=== PATIENT | female | born 2005 | race Caucasian/White ===

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

== ENCOUNTER 2023-01-21 03:52 | Inpatient (IN) | payer OTHER ==
[2023-01-21] MEDS ORDERED: OXYTOCIN 10 UNIT/ML 1 ML VIAL IM PRN (04:19)
[2023-01-21] MEDS ORDERED: TRANEXAMIC 1,000 MG/100ML-NACL 1,000 MG in EMPTY BAG 1 BAG IV PRN (04:19)
[2023-01-21] MEDS ORDERED: METHYLERGONOVINE 0.2 MG/ML 1 ML AMP IM PRN (04:19)
[2023-01-21] MEDS ORDERED: CARBOPROST TROMETHAMINE 250 MCG/ML 1 ML AMP IM PRN (04:19)
[2023-01-21] MEDS ORDERED: TERBUTALINE 1 MG/ML VIAL SQ PRN (04:19)
[2023-01-21] MEDS ORDERED: LIDOCAINE 0.5% (PF) 5 MG/ML (50 ML SDV) SQ PRN (04:19)
[2023-01-21] MEDS ORDERED: miSOPROStoL 200 MCG TAB PO PRN (04:19)
[2023-01-21] MEDS ORDERED: OXYTOCIN 30 UNITS/500 ML NS 30 UNIT in SALINE 1 500ML.BAG IV SCH ×2 (04:30→13:15)
[2023-01-21] MEDS: LACTATED RINGERS 1,000 ML IV SCH ×3 (05:04→10:36)
[2023-01-21 05:44] LABS: Basophils % (A) 0 %; Eosinophils # (A) 0.1 k/uL (0-0.7); Eosinophils % (A) 1 %; HCT 38.9 % (34.0-46.0); Lymphocytes % (A) 17 %; MCH 29.4 pg (25.0-35.0); MCHC 33.4 g/dL (31.0-37.0); Mean Platelet Volume 8.3; Monocytes # (A) 0.4 k/uL (0-1.0); Monocytes % (A) 3 %; Neutrophils # (A) 8.9 k/uL (1.3-7.7); Neutrophils % (A) 78 %; Platelet Count 285 k/uL (150-450); RBC 4.42 m/uL (3.80-5.40); RDW 13.7 % (11.5-15.5); WBC 11.4 k/uL (4.0-11.0)
--- NOTE | 2023-01-21 06:22 | P.HPOB ---
History of Present Illness H&P Date: 01/21/23 Chief Complaint: Spontaneous rupture membranes This is a 17-year-old female 1 para 0 with an estimated date of confinement of 01/29/2023, estimated gestational age of 38-6/7 weeks, who presents to labor and delivery with complaints of spontaneous rupture membranes with clear fluid noted at approximately 3 AM. Her has been complicated by a marginal cord insertion. She has been doing regular surveillance due to this. labs: Group B streptococcus-negative Hemoglobin-11.6 One hour Glucola-117 [id number] GC/chlamydia/Trichomonas-negative Blood type-A+ Rubella-immune Toxoplasma-negative RPR-nonreactive HIV-nonreactive Hepatitis C antibody-negative nonreactive Random glucose-103 Antibody screen-negative Hepatitis B surface antigen-negative Obstetrical history: . Gynecologic history: No history of sexual transmitted diseases. Social history: She is single. She works at a factory. Review of Systems Constitutional: Denies chills, Denies fever Eyes: denies blurred vision, denies pain Ears, nose, mouth and throat: Denies headache, Denies sore throat Cardiovascular: Denies chest pain, Denies shortness of breath Respiratory: Denies cough Gastrointestinal: Reports abdominal pain (Contractions) Genitourinary: Reports pelvic pain, Reports Musculoskeletal: Reports low back pain Integumentary: Denies pruritus, Denies rash Neurological: Denies numbness, Denies weakness Psychiatric: Reports difficulty concentrating, Denies anxiety, Denies depression Past Medical History Past Medical History: No Reported History History of Any Multi-Drug Resistant Organisms: None Reported Past Surgical History: No Surgical Hx Reported Additional Past Surgical History / Comment(s): wisdom teeth Past Anesthesia/Blood Transfusion Reactions: No Reported Reaction Past Psychological History: ADD/ADHD Smoking Status: Never smoker Past Alcohol Use History: None Reported Past Drug Use History: Marijuana (Quit with ) - Past Family History Sister(s) Family Medical History: Cancer Medications and Allergies Home Medications Medication Instructions Recorded Confirmed Type Vit No.179/Iron/Folic 1 tab PO DAILY 11/01/22 01/21/23 History [ Tablet] Allergies Allergy/AdvReac Type Severity Reaction Status Date / Time No Known Allergies Allergy Verified 11/01/22 19:08 Exam Osteopathic Statement: *. No significant issues noted on an osteopathic structural exam other than those noted in the History and Physical/Consult. Vital Signs Temp Pulse Resp BP Pulse Ox 01/21/23 04:18 97.7 F 90 16 133/76 99 01/21/23 04:12 97.7 F 90 16 133/76 99 Intake and Output 01/20/23 01/20/23 01/21/23 14:59 22:59 06:59 Other: Weight 94.347 kg HEENT: Within normal limits Heart: Regular rate and rhythm Lungs: Clear to auscultation bilaterally Abdomen: Cervix: 2-1/2-3 cm/70%/-2 station, grossly ruptured clear fluid with positive amnisure heart tones: 130s, reactive, with moderate variability and accelerations and occasional mild variable deceleration Contractions: Every 2-5 minutes Extremities: Negative Homans Results Result Diagrams: 01/21/23 04:55 Abnormal Lab Results - Last 24 Hours (Table) 01/21/23 Range/Units 04:55 WBC 11.4 H (4.0-11.0) k/uL Neutrophils # 8.9 H (1.3-7.7) k/uL Assessment and Plan (1) 38 weeks gestation of Current Visit: Yes Status: Acute Code(s): Z3A.38 - 38 WEEKS GESTATION OF SNOMED Code(s): 88006021 Plan: Admission for spontaneous rupture membranes. Oxytocin augmentation of labor. Epidural anesthesia if desired. Expectant management.
[2023-01-21] MEDS ORDERED: fentaNYL (PF) 50 MCG/ML 5 ML AMP ONE (10:10)
[2023-01-21] MEDS ORDERED: ROPIVACAINE 5 MG/ML 30 ML VIAL ONE (10:10)
[2023-01-21] MEDS ORDERED: SODIUM CHLORIDE 0.9% 250 ML BAG ONE (10:10)
[2023-01-21] MEDS ORDERED: SIMETHICONE 80 MG CHEWABLE PO PRN (13:14)
[2023-01-21] MEDS ORDERED: HYDROCORTISONE 2.5% RECTAL CREAM 30 GM TUBE RECTAL PRN (13:14)
[2023-01-21] MEDS ORDERED: ACETAMINOPHEN TAB 325 MG TAB PO PRN (13:14)
[2023-01-21] MEDS ORDERED: diphenhydrAMINE 50 MG/ML 1 ML VIAL IVP PRN ×2 (13:14)
[2023-01-21] MEDS ORDERED: diphenhydrAMINE 50 MG CAP PO PRN (13:14)
[2023-01-21] MEDS ORDERED: LANOLIN CREAM 5 GM TUBE TOPICAL PRN (13:14)
[2023-01-21] MEDS ORDERED: IBUPROFEN 600 MG TAB PO PRN (13:14)
[2023-01-21] MEDS ORDERED: ZOLPIDEM 5 MG TAB PO PRN (13:14)
[2023-01-21] MEDS ORDERED: BENZOCAINE/MENTHOL SPRAY 1 GM/SPRAY AEROSOL TOPICAL PRN (13:14)
[2023-01-21] MEDS ORDERED: diphenhydrAMINE 25 MG CAP PO PRN (13:14)
--- NOTE | 2023-01-21 13:15 | P.PROBDLV ---
Vaginal Delivery Note - . Vaginal Delivery Note: The patient progressed to complete dilation after spontaneous rupture membranes and oxytocin augmentation of labor. She did try nitrous oxide for a while and then did get an epidural. Shortly after the epidural she was found be complete, she labored down, and then started pushing. Infant's head came to a crown. With one further push, the 's head delivered across the perineum in a right occiput anterior lie followed by the anterior shoulder. Nose and mouth were bulb suctioned. With one further push, the remainder the infant easily delivered and was placed on mother's abdomen. Cord was clamped and cut and was taken to warmer for evaluation. A viable male was noted with scores of 9 at 1 minute and 9 at 5 minutes and infant weight of 7 lbs. 15 oz. Sent to delivered shortly thereafter, intact, with a three-vessel cord. Marginal cord insertion was noted. Uterus contracted fairly well after oxytocin was given and uterine massage was carried out. Inspection of the perineum revealed a few abrasions but no active bleeding noted. Estimated blood loss is approximately 100 mL's. Both mother and are in stable condition.
--- NOTE | 2023-01-21 13:17 | P.MSEPDOC ---
Presenting Problems - Arrival Data Date of Arrival on Unit: 01/21/23 Time of Arrival on Unit: 04:12 Mode of Transport: Wheelchair - Complaint OB-Reason for Admission/Chief Complaint: Rule Out SROM Comment: SROM 0300 clear fluid Medical History - Information : 1 Para: 0 Term: 0 : 0 Abortions: Spontaneous or Elective: 0 Number of Living Children: 0 - Gestational Age Gestational Age by MATTHEW (wks/days): 38 Weeks and 6 Days Review of Systems - Review of Systems Constitutional: No problems Breast: No problems ENT: No problems Cardiovascular: No problems Respiratory: No problems Gastrointestinal: No problems Genitourinary: No problems Musculoskeletal: No problems Neurological: No problems Skin: No problems Vital Signs - Temperature Temperature: 97.7 F Temperature Source: Temporal Artery Scan - Pulse Pulse Oximetery Pulse Rate: 90 Pulse Assessment Method: Automatic Cuff - Respirations Respiratory Rate: 16 Oxygen Delivery Method: Room Air O2 Sat by Pulse Oximetry: 99 - Blood Pressure Right Arm Blood Pressure: 133/76 Blood Pressure Mean: 95 Blood Pressure Source: Automatic Cuff Medical Screen Scoring - Cervical Exam Dilation (cm): 3 Effacement (%): 70 Station: -2 Membranes: Ruptured - Uterine Contractions Frequency From (mins): 2 Frequency To (mins): 4 Duration From (seconds): 30 Duration To (seconds): 80 Intensity: Mild Resting: Soft to palpation - Assessment - Baby A Baseline FHR: 130 Heart Rate - NICHD Category: Category I (Normal) NST: Reactive Physician Notification - Physician Notified Physician Notified Date: 01/21/23 Physician Notified Time: 04:12 Physician: Yadira Flowers New Order Received: Yes - Notification Comment Comment: Admit for labor Maternal Triage Index - Maternal Triage Index Presenting for scheduled procedure w/no complaint: No - Stat/Priority 1 Stat Priority 1: No - Urgent/Priority 2 Urgent Priority 2: Yes Provider Notified: Yadira Flowers Provider Notified Time: 04:12 Criteria Met for Priority 2: SROM amnsiure positive 0300 clear fluid Disposition - Disposition OB Disposition: Admit I agree with the RN Medical Screening Exam: Yes Case reviewed; plan agreed upon as documented in EMR&OBIX.: Yes Diagnosis: ENCOUNTER FOR FULL-TERM UNCOMPLICATED DELIVERY
[2023-01-21] MEDS: SENNOSIDES-DOCUSATE SODIUM 1 EACH TAB PO SCH (20:48)
[2023-01-21 22:19] VITALS: RESP 16
[2023-01-22 06:31] LABS: Basophils % (A) 0 %; Eosinophils # (A) 0.1 k/uL (0-0.7); Eosinophils % (A) 1 %; HCT 34.7 % (34.0-46.0); HGB 11.7 gm/dL (11.4-16.0); Lymphocytes # (A) 1.8 k/uL (1.0-4.8); Lymphocytes % (A) 15 %; MCHC 33.8 g/dL (31.0-37.0); MCV 88.7 fL (80.0-100.0); Mean Platelet Volume 8.5; Monocytes # (A) 0.4 k/uL (0-1.0); Monocytes % (A) 4 %; Neutrophils # (A) 9.7 k/uL (1.3-7.7); Neutrophils % (A) 80 %; Platelet Count 214 k/uL (150-450); RBC 3.91 m/uL (3.80-5.40); RDW 13.6 % (11.5-15.5); WBC 12.2 k/uL (4.0-11.0)
[2023-01-22] MEDS: SENNOSIDES-DOCUSATE SODIUM 1 EACH TAB PO SCH (07:52)
--- NOTE | 2023-01-22 08:52 | P.DS ---
Providers Date of admission: 01/21/23 04:12 Expected date of discharge: 01/22/23 Attending physician: Yadira Flowers Primary care physician: Stated None - Discharge Diagnosis(es) (1) 38 weeks gestation of Current Visit: Yes Status: Acute Hospital Course: This is a 17-year-old female 1 para 0 at 38-6/7 weeks who presented with spontaneous rupture of membranes. She delivered vaginally a viable male infant with scores of 9 at 1 minute and 9 at 5 minutes and infant weight of 7 lbs. 15 oz. Her course is been uncomplicated. She is breast- feeding. Lochia is decreasing. Her pain is fairly well controlled. Vital signs are stable. Abdomen is soft with fundus firm and nontender. Extremities show negative Homans. Impression is status post vaginal delivery day #1. Plan is to discharge home today. Routine instructions are given. She is advised to follow up in the office in 6 weeks for a check. She is advised to call the office if she has any further questions or concerns prior to her appointment time. She will be given a perception for ibuprofen and a breast pump. Procedures: Oxytocin augmentation of labor Spontaneous vaginal delivery of a viable male infant on 01/21/2023 Patient Condition at Discharge: Stable Plan - Discharge Summary New Discharge Prescriptions: New Acetaminophen Tab [Tylenol] 650 mg PO Q4HR PRN tab PRN Reason: Mild Pain Or Fever >= 100.5 Ibuprofen [Motrin] 600 mg PO Q6HR PRN #60 tab PRN Reason: Mild Pain (Scale 1 To 3) Continue Vit No.179/Iron/Folic [ Tablet] 1 tab PO DAILY Discharge Medication List Vit No.179/Iron/Folic [ Tablet] 1 tab PO DAILY 11/01/22 [History] Acetaminophen Tab [Tylenol] 650 mg PO Q4HR PRN tab 01/22/23 [Rx] Ibuprofen [Motrin] 600 mg PO Q6HR PRN #60 tab 01/22/23 [Rx] Follow up Appointment(s)/Referral(s): Yadira Flowers DO [Doctor of Osteopathic Medicine] - 6 Weeks Activity/Diet/Wound Care/Special Instructions: Instructions 1. Do not begin any exercise program for 3 weeks. 2. Do not resume sexual relations for 3 weeks or longer if uncomfortable. 3. You may take tub baths or showers at any time. 4. You may use tampons if desired after 3 weeks. 5. Keep the area of episiotomy (stitches) clean and dry. 6. If you are not nursing, wear a good fitting, supportive bra during the day and limit fluid intake for at least 1 week to prevent breast engorgement. 7. Call the office, [phone], within the next week to make appointment for your 6 week checkup if it has not already been made. 8. Report any of the following occurrences to the doctor promptly: a. Heavy, excessive bleeding b. Chills, fever c. Burning or frequency of urination d. Pain or redness and breasts if nursing e. Increasing pain or swelling in episiotomy (stitches). In addition to the above instructions, the following additional should be followed: 1. No heavy lifting or straining (exercising) until after 6 week checkup. 2. Keep abdominal incision clean and dry: You may wear a dressing if more comfortable. 3. Make office appointment for 10 days after going home or as instructed by her doctor. Discharge Disposition: HOME SELF-CARE
[2023-01-22] MEDS ORDERED: PRENATAL VIT-IRON-FOLIC ACID 1 EACH TABLET PO SCH (09:00)
[2023-01-22 11:43] VITALS: BP 107/72; PULSE 91; TEMP 98.3
== END 2023-01-22 14:42 | disposition home or self-care (01) | DRG 560 ==
LOC: FBPOP 03:52 → 4FBP 04:12
PROVIDERS: ADMIT Obstetrics & Gynecology; ATTEND Obstetrics & Gynecology
PROC: 10E0XZZ Delivery of Products of Conception, External Approach (ICD-10-PCS; principal; 2023-01-21)
PROC: 3E033VJ Introduction of Other Hormone into Peripheral Vein, Percutaneous Approach (ICD-10-PCS; 2023-01-21)
DX: O42.92 Full-term premature rupture of membranes, unspecified as to length of time between rupture and onset of labor (principal); O43.193 Other malformation of placenta, third trimester; F90.9 Attention-deficit hyperactivity disorder, unspecified type; O99.344 Other mental disorders complicating childbirth; Z37.0 Single live birth; Z3A.38 38 weeks gestation of pregnancy
CPT/HCPCS: 59025; 84112; 85025; 86850; 86900; 86901; 99213

== ENCOUNTER → 2023-03-13 | Outpatient (CLI) | payer OTHER | END | disposition home or self-care (01) | LOC: LABWHC1 15:36 | PROVIDERS: ATTEND Obstetrics & Gynecology | DX: N91.2 Amenorrhea, unspecified (principal); N94.89 Other specified conditions associated with female genital organs and menstrual cycle | CPT/HCPCS: 36415; 84702 ==

== ENCOUNTER 2023-05-08 17:12 | Emergency (ER) | payer OTHER ==
[2023-05-08 17:49] VITALS: RESP 20; TEMP 99.7
--- NOTE | 2023-05-08 18:54 | XR ---
EXAMINATION TYPE: XR chest 2V DATE OF EXAM: 05/08/2023 COMPARISON: NONE HISTORY: Cough and fever TECHNIQUE: Frontal and lateral views of the chest are obtained. FINDINGS: There is no focal air space opacity. Peribronchial cuffing could reflect bronchitis. Correlate clinic ally. No evidence for pneumothorax. No pleural effusion. The cardiac silhouette size is within normal limits. The osseous structures are grossly intact. IMPRESSION: 1. There is no focal air space opacity. Peribronchial cuffing could reflect bronchitis. Correlate cl inically.
--- NOTE | 2023-05-08 19:18 | ED ---
General Adult HPI - General Chief complaint: Upper Respiratory Infection Stated complaint: body aches Time Seen by Provider: 05/08/23 18:02 Source: patient, RN notes reviewed Mode of arrival: ambulatory Limitations: no limitations - History of Present Illness Initial comments: 17-year-old female presents to the emergency department for evaluation of cough, congestion. She states symptoms started yesterday. She also admits to some lightheadedness today when she was walking home from work. She admits to fever and chills. Denies nausea, vomiting. Denies chest pain, shortness of breath. - Related Data Home Medications Medication Instructions Recorded Confirmed Vit No.179/Iron/Folic 1 tab PO DAILY 11/01/22 01/21/23 [ Tablet] Previous Rx's Medication Instructions Recorded Acetaminophen Tab [Tylenol] 650 mg PO Q4HR PRN tab 01/22/23 Ibuprofen [Motrin] 600 mg PO Q6HR PRN #60 tab 01/22/23 Allergies Allergy/AdvReac Type Severity Reaction Status Date / Time No Known Allergies Allergy Verified 05/08/23 17:48 Review of Systems ROS Statement: Those systems with pertinent positive or pertinent negative responses have been documented in the HPI. ROS Other: All systems not noted in ROS Statement are negative. Past Medical History Past Medical History: No Reported History History of Any Multi-Drug Resistant Organisms: None Reported Past Surgical History: No Surgical Hx Reported Additional Past Surgical History / Comment(s): wisdom teeth (2020) Past Anesthesia/Blood Transfusion Reactions: No Reported Reaction Past Psychological History: ADD/ADHD Smoking Status: Never smoker Past Alcohol Use History: None Reported Past Drug Use History: Marijuana - Past Family History Sister(s) Family Medical History: Cancer General Exam Limitations: no limitations General appearance: alert, in no apparent distress Course Vital Signs 05/08/23 05/08/23 17:44 20:10 Temperature 99.7 F H Pulse Rate 107 H 121 H Respiratory 20 20 Rate Blood Pressure 117/72 120/72 O2 Sat by Pulse 96 100 Oximetry Medical Decision Making - Medical Decision Making Was pt. sent in by a medical professional or institution (, JERONIMO, MANUFACTURING BUSINESS ANALYST, urgent care, hospital, or assisted...) When possible be specific @ -No Did you speak to anyone other than the patient for history (EMS, parent, family, police, friend...)? What history was obtained from this source @ -No Did you review nursing and triage notes (agree or disagree)? Why? @ -I reviewed and agree with nursing and triage notes Were old charts reviewed (outside hosp., previous admission, EMS record, old EKG, old radiological studies, urgent care reports/EKG's, assisted records)? Report findings @ -No old charts were reviewed Differential Diagnosis (chest pain, altered mental status, abdominal pain women, abdominal pain men, vaginal bleeding, weakness, fever, dyspnea, syncope, headache, dizziness, GI bleed, back pain, seizure, CVA, palpatations, mental health, musculoskeletal)? @ -Not applicable EKG interpreted by me (3pts min.). @ -EKG at 1836 shows sinus tachycardia rate 108, MI 104, QRS 76, QTQTc [id number] X-rays interpreted by me (1pt min.). @ -Chest x-ray shows peribronchial cuffing with no acute infiltrate CT interpreted by me (1pt min.). @ -None done U/S interpreted by me (1pt. min.). @ -None done What testing was considered but not performed or refused? (CT, X-rays, U/S, labs)? Why? @ -None What meds were considered but not given or refused? Why? @ -None Did you discuss the management of the patient with other professionals (professionals i.e. , PA, MANUFACTURING BUSINESS ANALYST, lab, RT, psych nurse, health care social worker, boarding house manager, teacher, fire officer, rifle case repairer)? Give summary @ -No Was smoking cessation discussed for >3mins.? @ -No Was critical care preformed (if so, how long)? @ -No Were there social determinants of health that impacted care today? How? (Homelessness, low income, unemployed, alcoholism, drug addiction, transportation, low edu. Level, literacy, decrease access to med. care, [facility], rehab)? @ -No Was there de-escalation of care discussed even if they declined (Discuss DNR or withdrawal of care, Hospice)? DNR status @ -No What co-morbidities impacted this encounter? (DM, HTN, Smoking, COPD, CAD, Cancer, CVA, ARF, Chemo, Hep., AIDS, mental health diagnosis, sleep apnea, morbid obesity)? @ -None Was patient admitted / discharged? Hospital course, mention meds given and route, prescriptions, significant lab abnormalities, going to OR and other pertinent info. @ -Discharge. Patient presented to the emergency department for evaluation of cough, congestion x 2 days. Chest x-ray obtained which shows peribronchial cuffing with no acute infiltrate. Patient positive for influenza A. COVID, RSV negative. Advised on symptomatic treatment and strict return precautions discussed. Patient stable at time of discharge. Case discussed with Dr. Grayson Undiagnosed new problem with uncertain prognosis? @ -No Drug Therapy requiring intensive monitoring for toxicity (Heparin, Nitro, Insulin, Cardizem)? @ -No Were any procedures done? @ -No Diagnosis/symptom? @ -influenza a Acute, or Chronic, or Acute on Chronic? @ -acute Uncomplicated (without systemic symptoms) or Complicated (systemic symptoms)? @ -complicated Side effects of treatment? @ -No Exacerbation, Progression, or Severe Exacerbation? @ -No Poses a threat to life or bodily function? How? (Chest pain, [place], [place], pneumonia, PE, COPD, DKA, ARF, appy, cholecystitis, CVA, Diverticulitis, Homicidal, Suicidal, threat to staff... and all critical care pts) @ -No - Lab Data Lab Results 05/08/23 Range/Units 18:44 Influenza Type A (PCR) Detected A (Not Detectd) Influenza Type B (PCR) Not Detected (Not Detectd) RSV (PCR) Not Detected (Not Detectd) SARS-CoV-2 (PCR) Not Detected (Not Detectd) Disposition Clinical Impression: Influenza A Disposition: HOME SELF-CARE Condition: Stable Instructions (If sedation given, give patient instructions): Influenza (ED) Additional Instructions: Please follow up with a primary care provider. Return to the emergency department for new or worsening symptoms. Is patient prescribed a controlled substance at d/c from ED?: No Referrals: None,Stated [Primary Care Provider] - 1-2 days
[2023-05-08 20:28] VITALS: BP 120/72; PULSE 121
== END 2023-05-08 20:16 | disposition home or self-care (01) ==
LOC: EC 17:12
DX: J10.1 Influenza due to other identified influenza virus with other respiratory manifestations (principal); R00.0 Tachycardia, unspecified; F12.90 Cannabis use, unspecified, uncomplicated; Z20.822 Contact with and (suspected) exposure to COVID-19
CPT/HCPCS: 71046; 87636; 93005; 99284

== ENCOUNTER 2023-07-23 17:09 | Emergency (ER) | payer OTHER ==
--- NOTE | 2023-07-23 17:49 | ED ---
Abdominal Pain HPI - General Source: patient, RN notes reviewed Mode of arrival: ambulatory Limitations: no limitations <Jenny Ferreira - Last Filed: 07/23/23 17:47> <Amanda Durán - Last Filed: 07/26/23 13:50> - General Chief Complaint: Abdominal Pain Stated Complaint: ABD pain Time Seen by Provider: 07/23/23 17:30 - History of Present Illness Initial Comments: Quick noteis a 18-year-old female with a chief complaint of abdominal pain that started this morning in her bilateral pelvic region and does not radiate. She denies nausea, vomiting, general bleeding, diarrhea, constipation. (Jenny Ferreira) 18-year-old female presents to the emergency department for evaluation of abdominal pain. She states that this started around 1 week ago but was worse earlier today and is in her lower abdomen/pelvic region. Last menstrual period was around 1 month ago. She denies fever, chills, nausea, vomiting, vaginal bleeding, discharge. (Amanda Durán) - Related Data Home Medications Medication Instructions Recorded Confirmed Vit No.179/Iron/Folic 1 tab PO DAILY 11/01/22 01/21/23 [ Tablet] Previous Rx's Medication Instructions Recorded Acetaminophen Tab [Tylenol] 650 mg PO Q4HR PRN tab 01/22/23 Ibuprofen [Motrin] 600 mg PO Q6HR PRN #60 tab 01/22/23 Cephalexin [Keflex] 500 mg PO BID #14 cap 07/26/23 Allergies Allergy/AdvReac Type Severity Reaction Status Date / Time No Known Allergies Allergy Verified 07/23/23 17:16 Review of Systems ROS Other: All systems not noted in ROS Statement are negative. <Jenny Ferreira - Last Filed: 07/23/23 17:47> ROS Other: All systems not noted in ROS Statement are negative. <Amanda Durán - Last Filed: 07/26/23 13:50> ROS Statement: Those systems with pertinent positive or pertinent negative responses have been documented in the HPI. Past Medical History Past Medical History: No Reported History History of Any Multi-Drug Resistant Organisms: None Reported Past Surgical History: No Surgical Hx Reported Additional Past Surgical History / Comment(s): wisdom teeth (2020) Past Anesthesia/Blood Transfusion Reactions: No Reported Reaction Past Psychological History: ADD/ADHD Smoking Status: Never smoker Past Alcohol Use History: None Reported Past Drug Use History: Marijuana - Past Family History Sister(s) Family Medical History: Cancer <Jenny Ferreira - Last Filed: 07/23/23 17:47> General Exam Limitations: no limitations <Maryjo Ferreiraoe - Last Filed: 07/23/23 17:47> Limitations: no limitations General appearance: alert, in no apparent distress Head exam: Present: atraumatic, normocephalic, normal inspection Eye exam: Present: normal appearance, PERRL, EOMI. Absent: scleral icterus, conjunctival injection, periorbital swelling ENT exam: Present: normal exam, mucous membranes moist Respiratory exam: Present: normal lung sounds bilaterally. Absent: respiratory distress, wheezes, rales, rhonchi, stridor Cardiovascular Exam: Present: regular rate, normal rhythm, normal heart sounds. Absent: systolic murmur, diastolic murmur, rubs, gallop, clicks GI/Abdominal exam: Present: soft, normal bowel sounds. Absent: distended, tenderness, guarding, rebound, rigid Extremities exam: Present: normal inspection, full ROM, normal capillary refill. Absent: tenderness, pedal edema, joint swelling, calf tenderness Back exam: Present: normal inspection Neurological exam: Present: alert, oriented X3 Psychiatric exam: Present: normal affect, normal mood Skin exam: Present: warm, dry, intact, normal color. Absent: rash <Amanda Durán - Last Filed: 07/26/23 13:50> - General Exam Comments Initial Comments: Visual Physical Exam Vital signs reviewed General: Well-appearing, nontoxic, no acute distress. Head: Normocephalic, atraumatic Eyes: PERRLA, EOMI ENT: Airway patent Chest: Nonlabored breathing Skin: No visual rash, normal skin tone Neuro: Alert and oriented 3 Musculoskeletal: No gross abnormalities (Stieler,Jenny) Course Vital Signs 07/23/23 07/23/23 17:14 20:47 Temperature 97.7 F Pulse Rate 86 99 Respiratory 20 18 Rate Blood Pressure 134/85 149/85 O2 Sat by Pulse 99 98 Oximetry Medical Decision Making <Jenny Ferreira - Last Filed: 07/23/23 17:47> - Lab Data Result diagrams: 07/23/23 18:40 04/22/24 18:40 <Amanda Durán - Last Filed: 07/26/23 13:50> - Medical Decision Making I completed the quick note portion of this chart signed Jenny Ferreira PA-C (Jenny Ferreira) Was pt. sent in by a medical professional or institution (JERONIMO Hernandez, NEW PATIENT ESCORT, urgent care, hospital, or penitentiary...) When possible be specific @ -No Did you speak to anyone other than the patient for history (EMS, parent, family, police, friend...)? What history was obtained from this source @ -No Did you review nursing and triage notes (agree or disagree)? Why? @ -I reviewed and agree with nursing and triage notes Were old charts reviewed (outside hosp., previous admission, EMS record, old EKG, old radiological studies, urgent care reports/EKG's, penitentiary records)? Report findings @ -No old charts were reviewed Differential Diagnosis (chest pain, altered mental status, abdominal pain women, abdominal pain men, vaginal bleeding, weakness, fever, dyspnea, syncope, headache, dizziness, GI bleed, back pain, seizure, CVA, palpatations, mental health, musculoskeletal)? @ -Differential Abdominal Pain Women: Appendicitis, Cholecystitis, diverticulosis, ischemic bowel, pancreatitis, hepatitis, UTI, gastroenteritis, AAA, incarcerated hernia, bowel obstruction, constipation, inflammatory bowel, hepatitis, peptic ulcer disease, splenic infarction, perforated viscus, vulvitis, ovarian torsion, PID, kidney stone, placenta abruption, this is not meant to be an all-inclusive list EKG interpreted by me (3pts min.). @ -As above X-rays interpreted by me (1pt min.). @ -KUB shows no acute process CT interpreted by me (1pt min.). @ -None done U/S interpreted by me (1pt. min.). @ -Ultrasound shows possible corpus luteal cyst with no visible IUP What testing was considered but not performed or refused? (CT, X-rays, U/S, labs)? Why? @ -None What meds were considered but not given or refused? Why? @ -None Did you discuss the management of the patient with other professionals (professionals i.e. JERONIMO Hernandez, NEW PATIENT ESCORT, lab, RT, psych nurse, social insurance administrator, metal bench patternmaker, teacher, radiological defense officer, foster care case manager)? Give summary @ -No Was smoking cessation discussed for >3mins.? @ -No Was critical care preformed (if so, how long)? @ -No Were there social determinants of health that impacted care today? How? (Homelessness, low income, unemployed, alcoholism, drug addiction, transportation, low edu. Level, literacy, decrease access to med. care, snf, rehab)? @ -No Was there de-escalation of care discussed even if they declined (Discuss DNR or withdrawal of care, Hospice)? DNR status @ -No What co-morbidities impacted this encounter? (DM, HTN, Smoking, COPD, CAD, Cancer, CVA, ARF, Chemo, Hep., AIDS, mental health diagnosis, sleep apnea, m orbid obesity)? @ -None Was patient admitted / discharged? Hospital course, mention meds given and route, prescriptions, significant lab abnormalities, going to OR and other pertinent info. @ -Discharge. Patient presented to the emergency department for evaluation of pelvic cramping. Labs and KUB x-ray ordered in the waiting room. X-ray was obtained and shows no acute process. Laboratory studies show WBC of 12.3, positive qualitative hCG. Quantitative hCG obtained which was 841. UA shows large leukocyte esterase, contaminated with squamous cells. Ultrasound was obtained which showed a possible corpus luteal cyst with no visible IUP at this time. Likely due to early , discussed that patient will need to have her beta hCG redrawn in 48 hours. Patient was provided a laboratory slip for this. Patient understanding agreeable plan. Patient stable at time of discharge. Case discussed with Dr. Mendoza Undiagnosed new problem with uncertain prognosis? @ -No Drug Therapy requiring intensive monitoring for toxicity (Heparin, Nitro, Insulin, Cardizem)? @ -No Were any procedures done? @ -No Diagnosis/symptom? @ -Early Acute, or Chronic, or Acute on Chronic? @ -Acute Uncomplicated (without systemic symptoms) or Complicated (systemic symptoms)? @ -Uncomplicated Side effects of treatment? @ -No Exacerbation, Progression, or Severe Exacerbation? @ -No Poses a threat to life or bodily function? How? (Chest pain, [place], [place], pneumonia, PE, COPD, DKA, ARF, appy, cholecystitis, CVA, Diverticulitis, Homicidal, Suicidal, threat to staff... and all critical care pts) @ -No (GorgefernieramuAmanda) - Lab Data Lab Results 07/23/23 07/23/23 07/23/23 Range/Units 18:40 18:40 18:40 WBC 12.3 H (4.0-11.0) k/uL RBC 5.04 (3.80-5.40) m/uL Hgb 13.4 (11.4-16.0) gm/dL Hct 42.3 (34.0-46.0) % MCV 83.9 (80.0-100.0) fL MCH 26.6 (25.0-35.0) pg MCHC 31.7 (31.0-37.0) g/dL RDW 12.9 (11.5-15.5) % Plt Count 348 (150-450) k/uL MPV 7.6 Neutrophils % 73 % Lymphocytes % 20 % Monocytes % 4 % Eosinophils % 2 % Basophils % 0 % Neutrophils # 9.0 H (1.3-7.7) k/uL Lymphocytes # 2.5 (1.0-4.8) k/uL Monocytes # 0.5 (0-1.0) k/uL Eosinophils # 0.3 (0-0.7) k/uL Basophils # 0.1 (0-0.2) k/uL Sodium 137 (137-145) mmol/L Potassium 3.7 (3.5-5.1) mmol/L Chloride 105 (98-107) mmol/L Carbon Dioxide 26 (22-30) mmol/L Anion Gap 6 mmol/L BUN 9 (7-17) mg/dL Creatinine 0.61 (0.52-1.04) mg/dL Est GFR (CKD-EPI)AfAm >90 (>60 ml/min/1.73 sqM) Est GFR (CKD-EPI)NonAf >90 (>60 ml/min/1.73 sqM) Glucose 90 (74-99) mg/dL Calcium 9.0 (8.4-10.2) mg/dL Total Bilirubin 0.4 (0.2-1.3) mg/dL AST 18 (14-36) U/L ALT 28 (4-34) U/L Alkaline Phosphatase 68 (38-126) U/L Total Protein 7.0 (6.3-8.2) g/dL Albumin 4.3 (3.5-5.0) g/dL Amylase 45 (30-110) U/L Lipase 43 (23-300) U/L HCG, Qual Detected HCG, Quant mIU/mL Urine Color Yellow Urine Appearance Cloudy H (Clear) Urine pH 5.5 (5.0-8.0) Ur Specific [place] 1.026 (1.001-1.035) Urine Protein Trace H (Negative) Urine Glucose (UA) Negative (Negative) Urine Ketones Negative (Negative) Urine Blood Negative (Negative) Urine Nitrite Negative (Negative) Urine Bilirubin Negative (Negative) Urine Urobilinogen <2.0 (<2.0) mg/dL Ur Leukocyte Esterase Large H (Negative) Urine RBC 4 (0-5) /hpf Urine WBC 23 H (0-5) /hpf Ur Squamous Epith Cells 30 H (0-4) /hpf Urine Mucus Rare H (None) /hpf 07/23/23 Range/Units 18:40 WBC (4.0-11.0) k/uL RBC (3.80-5.40) m/uL Hgb (11.4-16.0) gm/dL Hct (34.0-46.0) % MCV (80.0-100.0) fL MCH (25.0-35.0) pg MCHC (31.0-37.0) g/dL RDW (11.5-15.5) % Plt Count (150-450) k/uL MPV Neutrophils % % Lymphocytes % % Monocytes % % Eosinophils % % Basophils % % Neutrophils # (1.3-7.7) k/uL Lymphocytes # (1.0-4.8) k/uL Monocytes # (0-1.0) k/uL Eosinophils # (0-0.7) k/uL Basophils # (0-0.2) k/uL Sodium (137-145) mmol/L Potassium (3.5-5.1) mmol/L Chloride (98-107) mmol/L Carbon Dioxide (22-30) mmol/L Anion Gap mmol/L BUN (7-17) mg/dL Creatinine (0.52-1.04) mg/dL Est GFR (CKD-EPI)AfAm (>60 ml/min/1.73 sqM) Est GFR (CKD-EPI)NonAf (>60 ml/min/1.73 sqM) Glucose (74-99) mg/dL Calcium (8.4-10.2) mg/dL Total Bilirubin (0.2-1.3) mg/dL AST (14-36) U/L ALT (4-34) U/L Alkaline Phosphatase (38-126) U/L Total Protein (6.3-8.2) g/dL Albumin (3.5-5.0) g/dL Amylase (30-110) U/L Lipase (23-300) U/L HCG, Qual HCG, Quant 841.1 mIU/mL Urine Color Urine Appearance (Clear) Urine pH (5.0-8.0) Ur Specific [place] (1.001-1.035) Urine Protein (Negative) Urine Glucose (UA) (Negative) Urine Ketones (Negative) Urine Blood (Negative) Urine Nitrite (Negative) Urine Bilirubin (Negative) Urine Urobilinogen (<2.0) mg/dL Ur Leukocyte Esterase (Negative) Urine RBC (0-5) /hpf Urine WBC (0-5) /hpf Ur Squamous Epith Cells (0-4) /hpf Urine Mucus (None) /hpf Disposition <Jenny Ferreira - Last Filed: 07/23/23 17:47> Is patient prescribed a controlled substance at d/c from ED?: No <Amanda Durán - Last Filed: 07/26/23 13:50> Clinical Impression: Abdominal cramping affecting Disposition: HOME SELF-CARE Condition: Stable Instructions (If sedation given, give patient instructions): Abdominal Pain in (ED) Additional Instructions: Have bHcg redrawn in 48 hours. Please follow up with your INSIDE SALES MANAGER. Return to the emergency department for new or worsening symptoms. Referrals: None,Stated [Primary Care Provider] - 1-2 days Cindy Olsen MD [STAFF PHYSICIAN] - 1-2 days
[2023-07-23 17:52] VITALS: TEMP 97.7
[2023-07-23 18:51] LABS: Basophils # (A) 0.1 k/uL (0-0.2); Basophils % (A) 0 %; Eosinophils # (A) 0.3 k/uL (0-0.7); Eosinophils % (A) 2 %; HCT 42.3 % (34.0-46.0); HGB 13.4 gm/dL (11.4-16.0); Lymphocytes # (A) 2.5 k/uL (1.0-4.8); Lymphocytes % (A) 20 %; MCH 26.6 pg (25.0-35.0); MCHC 31.7 g/dL (31.0-37.0); MCV 83.9 fL (80.0-100.0); Mean Platelet Volume 7.6; Monocytes # (A) 0.5 k/uL (0-1.0); Monocytes % (A) 4 %; Neutrophils % (A) 73 %; Platelet Count 348 k/uL (150-450); RBC 5.04 m/uL (3.80-5.40); RDW 12.9 % (11.5-15.5); WBC 12.3 k/uL (4.0-11.0)
[2023-07-23 18:57] LABS: Appearance,Urine Cloudy (Clear); Bilirubin,Urine Negative (Negative); Blood,Urine Negative (Negative); Color,Urine Yellow; Glucose,Urine (UA) Negative (Negative); Ketones,Urine Negative (Negative); Leukocyte Esterase,Urine Large (Negative); Mucus,Urine Rare /hpf; Nitrite,Urine Negative (Negative); PH, Urine 5.5 (5.0-8.0); Protein,Urine Trace (Negative); RBC,Urine 4 /hpf (0-5); Specific Gravity,Urine 1.026 (1.001-1.035); Squamous Epithelial Cell,Urine 30 /hpf (0-4); Urobilinogen,Urine <2.0 mg/dL (<2.0); WBC,Urine 23 /hpf (0-5)
[2023-07-23 19:01] LABS: HCG,Qualitative Serum Detected
[2023-07-23 19:02] LABS: ALT 28 U/L (4-34); AST 18 U/L (14-36); African American GFR (CKD) >90 (>60 ml/min/1.73 sqM); Albumin 4.3 g/dL (3.5-5.0); Alkaline Phosphatase 68 U/L (38-126); Amylase 45 U/L (30-110); Anion Gap 6 mmol/L; Blood Urea Nitrogen 9 mg/dL (7-17); Carbon Dioxide 26 mmol/L (22-30); Chloride 105 mmol/L (98-107); Glucose 90 mg/dL (74-99); Lipase 43 U/L (23-300); Non-African American GFR(CKD) >90 (>60 ml/min/1.73 sqM); Potassium 3.7 mmol/L (3.5-5.1); Sodium 137 mmol/L (137-145); Total Bilirubin 0.4 mg/dL (0.2-1.3)
--- NOTE | 2023-07-23 19:11 | XR ---
KUB. HISTORY: Abdominal pain. COMPARISON: None. TECHNIQUE: 2 upright views of the abdomen were obtained. FINDINGS: The lung bases are clear. There is no free intraperitoneal air beneath the diaphragm. The bowel gas pattern is nonspecific and there is no evidence of obstruction. No suspicious abdominal or pelvic calcifications are seen. The osseous structures are intact. IMPRESSION: Nonspecific abdomen without evidence of free air or obstruction.
--- NOTE | 2023-07-23 20:16 | US ---
EXAMINATION TYPE: Transabdominal DATE OF EXAM: 07/23/2023 7:46 PM COMPARISON: NONE CLINICAL INDICATION: Female, 18 years old with history of pain; Patient states lower abdominal pain f or 2 weeks. EXAM PERFORMED: Transvaginal (TV) and Transabdominal (TA) EXAM MEASUREMENTS: GESTATIONAL AGE / DATING Physician Established: Not yet established Dates by LMP: (4 weeks/6 days) EDC: 03/25/2024 Dates by First Scan: No previous this is first scan Dates by Current Scan for: No IUP seen at this time MATERNAL ANATOMY Uterus: 9.7 x 5.4 x 6.5. The endometrium is hyperechoic and measures 2.7cm. There is no IUP seen at t his time. Right Ovary: 3.8 x 2.3 x 2.9cm. There is a 1.8 x 1.4 x 1.4cm anechoic area seen with peripheral color doppler flow, probable corpus lutem vs other. There is a small amount of free fluid seen surrounding the irght ovary. Left Ovary: 2.8 x 1.6 x 1.9cm. Follicular changes noted. Post CDS / Adnexa: Obscured by bowel. Presence of free fluid: Small amount surrounding right ovary Presence of corpus luteal cyst: Yes, right ovary. Presence of subchorionic bleed: No Date of LMP: 06/19/2023 Beta HcG (if available): 841 IMPRESSION: 1. No evidence of an intrauterine . 2. Probable corpus luteum in the right ovary and a small amount of fluid adjacent to the right ovary. 3. Possible early intrauterine but ectopic not excluded 4. Short term follow-up recommended to exclude ectopic .
[2023-07-23 21:05] VITALS: BP 149/85; PULSE 99; RESP 18
== END 2023-07-23 20:48 | disposition home or self-care (01) ==
LOC: EC 17:09
DX: O26.899 Other specified pregnancy related conditions, unspecified trimester (principal); R10.2 Pelvic and perineal pain; Z3A.00 Weeks of gestation of pregnancy not specified
CPT/HCPCS: 36415; 74018; 76801; 76817; 80053; 81001; 82150; 83690; 84702; 84703; 85025; 99284

== ENCOUNTER → 2023-07-26 | Outpatient (CLI) | payer OTHER | END | disposition home or self-care (01) | LOC: LABWHC1 16:18 | PROVIDERS: ATTEND Physician Assistant | DX: O20.0 Threatened abortion (principal); Z3A.00 Weeks of gestation of pregnancy not specified | CPT/HCPCS: 36415; 84702 ==

== ENCOUNTER 2023-12-10 21:16 | Emergency (ER) | payer OTHER ==
[2023-12-10 21:22] VITALS: RESP 18; TEMP 98
--- NOTE | 2023-12-10 23:04 | ED ---
URI HPI - General Chief Complaint: Upper Respiratory Infection Stated Complaint: Congestion,Migraines,25 weeks preg Time Seen by Provider: 12/10/23 22:00 Source: patient, RN notes reviewed Mode of arrival: ambulatory Limitations: no limitations - History of Present Illness Initial Comments: 18-year-old female at approximately 25 weeks gestation presenting with cough x 1 day with associated nasal congestion. Patient was recently exposed to COVID. Denies chest pain or shortness of breath. Has been taking Tylenol which has been improving symptoms. Tolerating orals well. Denies history of cardiac or pulmonary conditions. - Related Data Home Medications Medication Instructions Recorded Confirmed Vit No.179/Iron/Folic 1 tab PO DAILY 11/01/22 01/21/23 [ Tablet] Previous Rx's Medication Instructions Recorded Acetaminophen Tab [Tylenol] 650 mg PO Q4HR PRN tab 01/22/23 Ibuprofen [Motrin] 600 mg PO Q6HR PRN #60 tab 01/22/23 Cephalexin [Keflex] 500 mg PO BID #14 cap 07/26/23 Allergies Allergy/AdvReac Type Severity Reaction Status Date / Time No Known Allergies Allergy Verified 12/10/23 21:20 Review of Systems ROS Statement: Those systems with pertinent positive or pertinent negative responses have been documented in the HPI. ROS Other: All systems not noted in ROS Statement are negative. Past Medical History Past Medical History: No Reported History History of Any Multi-Drug Resistant Organisms: None Reported Past Surgical History: No Surgical Hx Reported Additional Past Surgical History / Comment(s): wisdom teeth (2020) Past Anesthesia/Blood Transfusion Reactions: No Reported Reaction Past Psychological History: ADD/ADHD Smoking Status: Never smoker Past Alcohol Use History: None Reported Past Drug Use History: None Reported - Past Family History Sister(s) Family Medical History: Cancer General Exam Limitations: no limitations General appearance: alert, in no apparent distress Head exam: Present: atraumatic, normocephalic, normal inspection Eye exam: Present: normal appearance, PERRL, EOMI. Absent: scleral icterus, conjunctival injection, periorbital swelling ENT exam: Present: normal exam, normal oropharynx, mucous membranes moist Neck exam: Present: normal inspection. Absent: tenderness, meningismus, lymphadenopathy Respiratory exam: Present: normal lung sounds bilaterally. Absent: respiratory distress, wheezes, rales, rhonchi, stridor Cardiovascular Exam: Present: regular rate, normal rhythm, normal heart sounds. Absent: systolic murmur, diastolic murmur, rubs, gallop, clicks GI/Abdominal exam: Present: soft, normal bowel sounds. Absent: distended, tenderness, guarding, rebound, rigid Neurological exam: Present: alert, oriented X3 Psychiatric exam: Present: normal affect, normal mood Skin exam: Present: warm, dry, intact, normal color. Absent: rash Course Vital Signs 12/10/23 12/10/23 21:20 23:15 Temperature 98.0 F Pulse Rate 95 100 Respiratory 18 18 Rate Blood Pressure 125/79 104/71 O2 Sat by Pulse 100 98 Oximetry Medical Decision Making - Medical Decision Making Was pt. sent in by a medical professional or institution (JERONIMO Hernandez, BUSHWALKING GUIDE, urgent care, hospital, or prison...) When possible be specific @ -No Did you speak to anyone other than the patient for history (EMS, parent, family, police, friend...)? What history was obtained from this source @ -No Did you review nursing and triage notes (agree or disagree)? Why? @ -I reviewed and agree with nursing and triage notes Were old charts reviewed (outside hosp., previous admission, EMS record, old EKG, old radiological studies, urgent care reports/EKG's, prison records)? Report findings @ -No old charts were reviewed Differential Diagnosis (chest pain, altered mental status, abdominal pain women, abdominal pain men, vaginal bleeding, weakness, fever, dyspnea, syncope, headache, dizziness, GI bleed, back pain, seizure, CVA, palpatations, mental health, musculoskeletal)? @ -Viral URI, pneumonia, COVID, bronchitis, influenza EKG interpreted by me (3pts min.). @ -None X-rays interpreted by me (1pt min.). @ -None done CT interpreted by me (1pt min.). @ -None done U/S interpreted by me (1pt. min.). @ -None done What testing was considered but not performed or refused? (CT, X-rays, U/S, labs)? Why? @ -Chest x-ray not indicated at this time due to no red flag symptoms What meds were considered but not given or refused? Why? @ -None Did you discuss the management of the patient with other professionals (professionals i.e. , PA, BUSHWALKING GUIDE, lab, RT, psych nurse, social media executive, regional vice president life sales, teacher, event security officer, case finishing machine adjuster)? Give summary @ -No Was smoking cessation discussed for >3mins.? @ -No Was critical care preformed (if so, how long)? @ -No Were there social determinants of health that impacted care today? How? (Homelessness, low income, unemployed, alcoholism, drug addiction, transportation, low edu. Level, literacy, decrease access to med. care, assisted, rehab)? @ -No Was there de-escalation of care discussed even if they declined (Discuss DNR or withdrawal of care, Hospice)? DNR status @ -No What co-morbidities impacted this encounter? (DM, HTN, Smoking, COPD, CAD, Cancer, CVA, ARF, Chemo, Hep., AIDS, mental health diagnosis, sleep apnea, morbid obesity)? @ -None Was patient admitted / discharged? Hospital course, mention meds given and route, prescriptions, significant lab abnormalities, going to OR and other pertinent info. @ -Patient was discharged. This is a 18-year-old female at 25 weeks gestation presenting with cough x 1 day with nasal congestion. No red flag symptoms, no acute distress or signs of labored breathing. Heart and lungs are clear to ausc ultation bilaterally. With positive, influenza and RSV negative. Discussed diagnosis of COVID-19 with patient. Supportive care discussed as well as return precautions and patient is agreeable to plan. Case discussed with my ED attending Dr. Arenas. patient discharged in stable condition. Undiagnosed new problem with uncertain prognosis? @ -No Drug Therapy requiring intensive monitoring for toxicity (Heparin, Nitro, Insulin, Cardizem)? @ -No Were any procedures done? @ -No Diagnosis/symptom? @ -COVID-19 Acute, or Chronic, or Acute on Chronic? @ -Acute Uncomplicated (without systemic symptoms) or Complicated (systemic symptoms)? @ -Uncomplicated Side effects of treatment? @ -No Exacerbation, Progression, or Severe Exacerbation? @ -No Poses a threat to life or bodily function? How? (Chest pain, USA, [place], pneumonia, PE, COPD, DKA, ARF, appy, cholecystitis, CVA, Diverticulitis, Homicidal, Suicidal, threat to staff... and all critical care pts) @ -Not at this time - Lab Data Lab Results 12/10/23 Range/Units 21:34 Influenza Type A (PCR) Not Detected (Not Detectd) Influenza Type B (PCR) Not Detected (Not Detectd) RSV (PCR) Not Detected (Not Detectd) SARS-CoV-2 (PCR) Detected A (Not Detectd) Disposition Clinical Impression: COVID-19 Disposition: HOME SELF-CARE Condition: Stable Instructions (If sedation given, give patient instructions): How to Recover from COVID-19 at Home (ED) Additional Instructions: Take Tylenol as needed for fever. Please return to the Emergency Department if symptoms worsen or any other concerns. Is patient prescribed a controlled substance at d/c from ED?: No Referrals: None,Stated [Primary Care Provider] - 1-2 days Time of Disposition: 23:31
[2023-12-10 23:29] VITALS: BP 104/71; PULSE 100
== END 2023-12-10 23:15 | disposition home or self-care (01) ==
LOC: EC 21:16
DX: O98.512 Other viral diseases complicating pregnancy, second trimester (principal); U07.1 COVID-19; Z3A.25 25 weeks gestation of pregnancy
CPT/HCPCS: 87636; 99283

== ENCOUNTER 2024-03-17 12:53 | Inpatient (IN) | payer OTHER ==
[2024-03-17] MEDS ORDERED: TRANEXAMIC 1,000 MG/100ML-NACL 1,000 MG in EMPTY BAG 1 BAG IV PRN (14:00)
[2024-03-17] MEDS ORDERED: LIDOCAINE 0.5% (PF) 5 MG/ML (50 ML SDV) SQ PRN (14:00)
[2024-03-17] MEDS ORDERED: METHYLERGONOVINE 0.2 MG/ML 1 ML AMP IM PRN (14:00)
[2024-03-17] MEDS ORDERED: OXYTOCIN 10 UNIT/ML 1 ML VIAL IM PRN (14:00)
[2024-03-17] MEDS ORDERED: miSOPROStoL 200 MCG TAB PO PRN (14:00)
[2024-03-17] MEDS ORDERED: CARBOPROST TROMETHAMINE 250 MCG/ML 1 ML AMP IM PRN (14:00)
[2024-03-17] MEDS ORDERED: miSOPROStoL 200 MCG TAB RECTAL PRN (14:00)
[2024-03-17] MEDS ORDERED: TERBUTALINE 1 MG/ML VIAL SQ PRN (14:00)
[2024-03-17] MEDS: LACTATED RINGERS 1,000 ML IV SCH (14:10)
[2024-03-17 14:35] LABS: Basophils % (A) 0 %; Eosinophils # (A) 0.1 k/uL (0-0.7); Eosinophils % (A) 1 %; HCT 39.3 % (34.0-46.0); HGB 13.1 gm/dL (11.4-16.0); Lymphocytes # (A) 1.5 k/uL (1.0-4.8); Lymphocytes % (A) 13 %; MCH 28.7 pg (25.0-35.0); MCHC 33.4 g/dL (31.0-37.0); MCV 85.7 fL (80.0-100.0); Mean Platelet Volume 7.6; Monocytes # (A) 0.4 k/uL (0-1.0); Monocytes % (A) 4 %; Neutrophils # (A) 9.6 k/uL (1.3-7.7); Neutrophils % (A) 82 %; Platelet Count 276 k/uL (150-450); RBC 4.58 m/uL (3.80-5.40); RDW 14.6 % (11.5-15.5); WBC 11.6 k/uL (4.0-11.0)
--- NOTE | 2024-03-17 17:52 | P.HPOB ---
History of Present Illness H&P Date: 03/17/24 Chief Complaint: uterine contractions Ms. Gomez is a 18 year old at 38 weeks and 6 days with EDC of 03/25/2024 by LMP consistent with 9 week US who presents with regular, painful uterine contractions. She was 3/50/-2 in the office on 03/06 and today she presents at 4/80/-2. Her has been essentially uncomplicated. Her fetus is estimated to be in the 90%ile for growth based on a 32 week growth US. Obstetric history: 1 FTVD, male, 7#15oz in 2022 work-up: blood type A positive, antibody screen negative, rubella immune, VDRL non-reactive, HBsAg negative, HIV negative, HCV Ab non-reactive, gonorrhea negative, chlamydia negative, 1 hour GTT wnl, GBS negative. Past Medical History Past Medical History: No Reported History History of Any Multi-Drug Resistant Organisms: None Reported Past Surgical History: No Surgical Hx Reported Additional Past Surgical History / Comment(s): wisdom teeth (2020) Past Anesthesia/Blood Transfusion Reactions: No Reported Reaction Past Psychological History: ADD/ADHD, Depression Smoking Status: Never smoker Past Alcohol Use History: None Reported Past Drug Use History: None Reported - Past Family History Sister(s) Family Medical History: Cancer Medications and Allergies Home Medications Medication Instructions Recorded Confirmed Type RX: Vit No.179/Iron/Folic 1 tab PO DAILY 11/01/22 03/17/24 History [ Tablet] Allergies Allergy/AdvReac Type Severity Reaction Status Date / Time No Known Allergies Allergy Verified 03/17/24 13:10 Exam Vital Signs Temp Pulse Resp BP Pulse Ox 03/17/24 13:51 97.4 F L 107 H 17 134/67 97 03/17/24 13:45 97.4 F L 107 H 17 134/67 97 Intake and Output 03/17/24 03/17/24 03/17/24 06:59 14:59 22:59 Other: # Voids 1 Weight 101.605 kg Focused physical exam is performed. This is a healthy-appearing in no apparent distress. Breathing is non-labored. Abdomen is gravid and non-tender. Cervical exam is 5/90/-2 station. AROM is undertaken with clear fluid noted. Extremities non-tender and non-edematous. heart tones are Category I and tocometer is graphing contractions every 2-4 minutes. Results Result Diagrams: 03/17/24 14:16 Abnormal Lab Results - Last 24 Hours (Table) 03/17/24 Range/Units 14:16 WBC 11.6 H (4.0-11.0) k/uL Neutrophils # 9.6 H (1.3-7.7) k/uL Assessment and Plan Assessment: 18 year old at 38 weeks and 6 days in spontaneous labor Plan: Admit, clear liquid diet, continuous EFM and tocometer, epidural prn. Anticipate vaginal delivery.
[2024-03-17] MEDS: NALBUPHINE 10 MG/ML (10 ML MDV) IV STA (18:48)
[2024-03-17] MEDS ORDERED: ROPIVACAINE 5 MG/ML 30 ML VIAL ONE (19:29)
[2024-03-17] MEDS ORDERED: SODIUM CHLORIDE 0.9% 250 ML BAG ONE (19:29)
[2024-03-17] MEDS ORDERED: fentaNYL (PF) 50 MCG/ML 5 ML AMP ONE (19:29)
[2024-03-17] MEDS: OXYTOCIN 30 UNITS/500 ML NS 30 UNIT in SALINE 1 500ML.BAG IV SCH (20:46)
[2024-03-17] MEDS ORDERED: ZOLPIDEM 5 MG TAB PO PRN (20:57)
[2024-03-17] MEDS ORDERED: LANOLIN CREAM 1 GM TUBE TOPICAL PRN (20:57)
[2024-03-17] MEDS ORDERED: diphenhydrAMINE 50 MG/ML 1 ML VIAL IVP PRN ×2 (20:57)
[2024-03-17] MEDS ORDERED: HYDROCORTISONE 2.5% RECTAL CREAM 30 GM TUBE RECTAL PRN (20:57)
[2024-03-17] MEDS ORDERED: diphenhydrAMINE 50 MG CAP PO PRN (20:57)
[2024-03-17] MEDS ORDERED: SIMETHICONE 80 MG CHEWABLE PO PRN (20:57)
[2024-03-17] MEDS ORDERED: diphenhydrAMINE 25 MG CAP PO PRN (20:57)
--- NOTE | 2024-03-17 20:57 | P.PROBDLV ---
Vaginal Delivery Note - . Vaginal Delivery Note: DATE OF SERVICE: 03/17/2024 PROCEDURE: Normal Vaginal Delivery ATTENDING: Dr. Cindy Olsen MD ESTIMATED BLOOD LOSS: 50 mL FINDINGS: VMI, Apgars 9/9. Weight 9 pounds and 1 ounce (4120 grams) PROCEDURE: Ms. Gomez is a 18 year old at 38 weeks and 6 days presenting to labor and delivery in spontaneous labor. The has been essentially uncomplicated. For further details, please review the admitting H&P. AROM was undertaken at 1708. She received epidural anesthesia per her request. The patient was completely dilated at 2028. She pushed effectively with Category I heart tones. A viable male infant was delivered at 2041 over an intact perineum. The was placed on the maternal abdomen and bulb suctioned. The was noted to be spontaneously crying. Cord was clamped and cut after a 60-second delay. The infant was handed off to the pediatric team. Placenta was delivered whole with gentle cord traction at 2046. Oxytocin was started to facilitate uterine tone. Uterine fundus was found to be firm and below the umbilicus upon fundal massage. Thorough examination of the cervix, vagina, periurethral area, and perineum revealed no lacerations. The patient is stable and allowed to begin the bonding process.
[2024-03-17] MEDS: BENZOCAINE/MENTHOL SPRAY 1 GM/SPRAY AEROSOL TOPICAL PRN (23:04)
[2024-03-18] MEDS ORDERED: ACETAMINOPHEN TAB 500 MG TAB PO PRN (01:28)
[2024-03-18] MEDS: IBUPROFEN 800 MG TAB PO PRN (01:45)
[2024-03-18 06:25] LABS: Basophils % (A) 0 %; Eosinophils # (A) 0.1 k/uL (0-0.7); Eosinophils % (A) 0 %; HCT 34.9 % (34.0-46.0); HGB 11.5 gm/dL (11.4-16.0); Lymphocytes # (A) 1.5 k/uL (1.0-4.8); Lymphocytes % (A) 8 %; MCH 28.3 pg (25.0-35.0); MCHC 32.9 g/dL (31.0-37.0); MCV 85.9 fL (80.0-100.0); Mean Platelet Volume 7.6; Monocytes # (A) 0.7 k/uL (0-1.0); Monocytes % (A) 4 %; Neutrophils # (A) 15.9 k/uL (1.3-7.7); Neutrophils % (A) 87 %; Platelet Count 236 k/uL (150-450); RBC 4.07 m/uL (3.80-5.40); RDW 14.4 % (11.5-15.5); WBC 18.3 k/uL (4.0-11.0)
[2024-03-18] MEDS: SENNOSIDES-DOCUSATE SODIUM 1 EACH TAB PO SCH (08:03)
--- NOTE | 2024-03-18 08:54 | P.PNOBGVD ---
Subjective - Subjective Principal diagnosis: s/p Interval history: The patient is doing well this morning and had no acute events overnight. She has no complaints this morning. She reports minimal lochia, passing flatus, voiding without difficulty, ambulating, and eating/drinking without nausea or vomiting. She is breast feeding her without difficulty. She denies chest pain, shortness of breathing, fevers, or chills overnight. She denies pain or swelling in the legs. Patient reports: Reports appetite normal, Reports voiding normally, Reports pain well controlled, Reports ambulating normally : doing well, nursing well Objective - Latest Vital Signs Latest vital signs: Vital Signs Temp Pulse Resp BP Pulse Ox 03/18/24 08:07 97.4 F L 86 17 112/74 03/18/24 04:00 86 16 111/67 97 03/17/24 23:20 98.4 F 116 H 16 131/75 97 03/17/24 23:00 98.4 F 112 H 16 127/59 03/17/24 22:45 115 H 16 127/59 03/17/24 22:30 115 H 16 124/58 03/17/24 22:15 116 H 16 126/58 03/17/24 22:00 115 H 16 124/58 03/17/24 21:45 118 H 16 131/70 03/17/24 21:30 112 H 16 136/62 03/17/24 21:15 115 H 16 136/63 03/17/24 21:00 99.2 F 115 H 16 119/52 03/17/24 13:51 97.4 F L 107 H 17 134/67 97 03/17/24 13:45 97.4 F L 107 H 17 134/67 97 Intake and Output 03/17/24 03/18/24 03/18/24 22:59 06:59 14:59 Intake Total 1000 400 Output Total 170 Balance 830 400 Intake: IV 1000 Invasive Line 1 1000 Oral 400 Output: Output, Quantitative 170 Blood Loss Other: # Voids 1 2 - Exam Extremities: Present: normal Abdomen: Present: normal appearance, soft Uterus: Present: normal, firm - Labs Labs: Abnormal Lab Results - Last 24 Hours (Table) 03/17/24 03/18/24 Range/Units 14:16 06:08 WBC 11.6 H 18.3 H (4.0-11.0) k/uL Neutrophils # 9.6 H 15.9 H (1.3-7.7) k/uL Assessment and Plan Assessment: 18 year old now PPD#1 s/p Plan: 1. . Patient meeting all milestones appropriately. 2. Viable male infant. Doing well at bedside, nursing well. Needs circumcision today. Dispo: Patient unsure if she wants to stay an additional night, likely discharge home tomorrow.
--- NOTE | 2024-03-18 16:38 | P.DS ---
Providers Date of admission: 03/17/24 13:32 Expected date of discharge: 03/18/24 Attending physician: Cindy Olsen MD Primary care physician: Stated None Hospital Course: Ms. Gomez is a 18 year old now PPD#1 s/p . Her labor and delivery were uncomplicated. Her course has been routine. She has met all milestones. She reports light lochia, eating and drinking without difficulty, voiding normally, ambulating normally. She denies fevers, chills, chest pain, shortness of breath, pain/swelling in the legs. She is formula feeding her infant. She desires discharge home today. She will use OTC Motrin and Tylenol. She is to follow up in 6 weeks for appointment. She is encouraged to call the office sooner for any fevers, chills, foul vaginal discharge, mastitis concerns, or any other concerns. All questions are answered. Assessment: 18 year old now PPD#1 s/p Patient Condition at Discharge: Good Plan - Discharge Summary New Discharge Prescriptions: No Action Vit No.179/Iron/Folic [ Tablet] 1 tab PO DAILY Discharge Medication List Vit No.179/Iron/Folic [ Tablet] 1 tab PO DAILY 11/01/22 [History] Follow up Appointment(s)/Referral(s): Cindy Olsen MD [STAFF PHYSICIAN] - 04/29/24 1:15 pm Discharge Disposition: HOME SELF-CARE
[2024-03-18 21:05] VITALS: BP 118/68; PULSE 68; RESP 20; TEMP 98.4
== END 2024-03-18 21:13 | disposition home or self-care (01) | DRG 560 ==
LOC: FBPOP 12:53 → 4FBP 13:32
PROVIDERS: ADMIT Obstetrics & Gynecology; ATTEND Obstetrics & Gynecology
PROC: 4A1HXCZ Monitoring of Products of Conception, Cardiac Rate, External Approach (ICD-10-PCS; principal; 2024-03-17)
PROC: 10E0XZZ Delivery of Products of Conception, External Approach (ICD-10-PCS; principal; 2024-03-17)
PROC: 10907ZC Drainage of Amniotic Fluid, Therapeutic from Products of Conception, Via Natural or Artificial Opening (ICD-10-PCS; principal; 2024-03-17)
DX: O80 Encounter for full-term uncomplicated delivery (principal); Z37.0 Single live birth; Z3A.38 38 weeks gestation of pregnancy; Z28.310 Unvaccinated for COVID-19; Z28.21 Immunization not carried out because of patient refusal
CPT/HCPCS: 59025; 85025; 86850; 86900; 86901; 99213

== ENCOUNTER 2024-07-06 10:26 | Emergency (ER) | payer OTHER ==
--- NOTE | 2024-07-06 10:30 | ED ---
General Adult HPI - General Stated complaint: Psych Time Seen by Provider: 07/06/24 10:28 Source: patient, EMS, RN notes reviewed Mode of arrival: EMS Limitations: no limitations - History of Present Illness Initial comments: 19-year-old female presents emergency department via EMS for psychiatric evaluation. Patient states she is having issues with her bipolar disorder. Patient denies being suicidal homicidal. Patient states that she is on Lamictal and Zoloft. Patient states that his medications are not helping. She does use marijuana denies any alcohol abuse. Patient states she just does not feel well and is needing help. - Related Data Home Medications Medication Instructions Recorded Confirmed Vit No.179/Iron/Folic 1 tab PO DAILY 11/01/22 03/17/24 [ Tablet] Previous Rx's Medication Instructions Recorded Sertraline [Zoloft] 100 mg PO DAILY 30 Days #0 tab 05/21/24 lamoTRIgine [LaMICtal] 25 mg PO DAILY 30 Days #30 tab 05/21/24 Allergies Allergy/AdvReac Type Severity Reaction Status Date / Time No Known Allergies Allergy Verified 05/18/24 21:25 Review of Systems ROS Statement: Those systems with pertinent positive or pertinent negative responses have been documented in the HPI. ROS Other: All systems not noted in ROS Statement are negative. Past Medical History Past Medical History: No Reported History History of Any Multi-Drug Resistant Organisms: None Reported Past Surgical History: No Surgical Hx Reported Additional Past Surgical History / Comment(s): wisdom teeth (2020) Past Anesthesia/Blood Transfusion Reactions: No Reported Reaction Smoking Status: Never smoker - Past Family History Sister(s) Family Medical History: Cancer General Exam Limitations: no limitations General appearance: alert, in no apparent distress Head exam: Present: atraumatic, normocephalic, normal inspection Eye exam: Present: normal appearance, PERRL, EOMI. Absent: scleral icterus, conjunctival injection, periorbital swelling ENT exam: Present: normal exam, normal oropharynx, mucous membranes moist Neck exam: Present: normal inspection, full ROM. Absent: tenderness, meningismus, lymphadenopathy Respiratory exam: Present: normal lung sounds bilaterally. Absent: respiratory distress, wheezes, rales, rhonchi, stridor Cardiovascular Exam: Present: regular rate, normal rhythm, normal heart sounds. Absent: systolic murmur, diastolic murmur, rubs, gallop, clicks Neurological exam: Present: alert, oriented X3, CN II-XII intact Psychiatric exam: Present: depressed, flat affect Course Vital Signs 07/06/24 10:27 Temperature 98.4 F Pulse Rate 85 Respiratory 18 Rate Blood Pressure 137/85 O2 Sat by Pulse 99 Oximetry Medical Decision Making - Medical Decision Making Was pt. sent in by a medical professional or institution (, JERONIMO, TIP STRETCHER, urgent care, hospital, or jail...) When possible be specific @ -No Did you speak to anyone other than the patient for history (EMS, parent, family, police, friend...)? What history was obtained from this source @ -EMS, police who brought the patient providing history Did you review nursing and triage notes (agree or disagree)? Why? @ -I reviewed and agree with nursing and triage notes Were old charts reviewed (outside hosp., previous admission, EMS record, old EKG, old radiological studies, urgent care reports/EKG's, jail records)? Report findings @ -No old charts were reviewed Differential Diagnosis (chest pain, altered mental status, abdominal pain women, abdominal pain men, vaginal bleeding, weakness, fever, dyspnea, syncope, headache, dizziness, GI bleed, back pain, seizure, CVA, palpatations, mental health, musculoskeletal)? @ -Differential Mental Health Depression, anxiety, bipolar, psychosis, schizophrenia, borderline personality, situational depression, adjustment disorder, behavioral disorder, brain tumor, malingering, substance abuse, encephalopathy, medication reaction, dementia, hypothyroidism, degenerative neurologic disorder, lupus.... This is not meant to be all-inclusive list EKG interpreted by me (3pts min.). @ -None X-rays interpreted by me (1pt min.). @ -None done CT interpreted by me (1pt min.). @ -None done U/S interpreted by me (1pt. min.). @ -None done What testing was considered but not performed or refused? (CT, X-rays, U/S, labs)? Why? @ -None What meds were considered but not given or refused? Why? @ -None Did you discuss the management of the patient with other professionals (professionals i.e. , JERONIMO, TIP STRETCHER, lab, RT, psych nurse, social sciences instructor, diamond die driller, teacher, senior administrative services officer, case supervisor)? Give summary @ -EPS evaluated the patient discussed with psychiatrist recommends outpatient treatment Was smoking cessation discussed for >3mins.? @ -No Was critical care preformed (if so, how long)? @ -No Were there social determinants of health that impacted care today? How? (Homelessness, low income, unemployed, alcoholism, drug addiction, transportation, low edu. Level, literacy, decrease access to med. care, half-way, rehab)? @ -No Was there de-escalation of care discussed even if they declined (Discuss DNR or withdrawal of care, Hospice)? DNR status @ -No What co-morbidities impacted this encounter? (DM, HTN, Smoking, COPD, CAD, Cancer, CVA, ARF, Chemo, Hep., AIDS, mental health diagnosis, sleep apnea, morbid obesity)? @ -None Was patient admitted / discharged? Hospital course, mention meds given and route, prescriptions, significant lab abnormalities, going to OR and other pertinent info. @ -Discharge patient has a safety plan. Patient is not suicidal or homicidal. Patient was evaluated by EPS and they recommend outpatient treatment did not recommend inpatient treatment Undiagnosed new problem with uncertain prognosis? @ -No Drug Therapy requiring intensive monitoring for toxicity (Heparin, Nitro, Insulin, Cardizem)? @ -No Were any procedures done? @ -No Diagnosis/symptom? @ -Bipolar disorder Acute, or Chronic, or Acute on Chronic? @ -[Acute Uncomplicated (without systemic symptoms) or Complicated (systemic symptoms)? @ -Complicated Side effects of treatment? @ -No Exacerbation, Progression, or Severe Exacerbation? @ -No Poses a threat to life or bodily function? How? (Chest pain, [place], [place], pneumonia, PE, COPD, DKA, ARF, appy, cholecystitis, CVA, Diverticulitis, Homicidal, Suicidal, threat to staff... and all critical care pts) @ -No - Lab Data Lab Results 07/06/24 07/06/24 Range/Units 10:53 10:53 Urine Opiates Screen Not Detected (NotDetected) Ur Oxycodone Screen Not Detected (NotDetected) Urine Methadone Screen Not Detected (NotDetected) Ur Barbiturates Screen Not Detected (NotDetected) U Tricyclic Antidepress Not Detected (NotDetected) Ur Phencyclidine Scrn Not Detected (NotDetected) Ur Amphetamines Screen Not Detected (NotDetected) U Methamphetamines Scrn Not Detected (NotDetected) U Benzodiazepines Scrn Not Detected (NotDetected) Urine Cocaine Screen Not Detected (NotDetected) U Marijuana (THC) Screen Detected H (NotDetected) SARS-CoV-2 (PCR) Not Detected (Not Detectd) Disposition Clinical Impression: Bipolar 2 disorder Disposition: HOME SELF-CARE Condition: Stable Instructions (If sedation given, give patient instructions): Bipolar Disorder (ED) Additional Instructions: Please return to the Emergency Department if symptoms worsen or any other concerns. Is patient prescribed a controlled substance at d/c from ED?: No Referrals: None,Stated [Primary Care Provider] - 1-2 days Time of Disposition: 13:28
[2024-07-06 10:37] VITALS: RESP 18; TEMP 98.4
[2024-07-06 11:26] LABS: Cocaine Screen,Urine Not Detected (NotDetected); Phencyclidine Screen,Urine Not Detected (NotDetected); Urn Cannabinoid Scrn Detected (NotDetected)
[2024-07-06 11:27] LABS: Amphetamine Screen,Urine Not Detected (NotDetected); Barbiturate Screen,Urine Not Detected (NotDetected); Benzodiazepines Screen,Urine Not Detected (NotDetected); Methadone Screen, Urine Not Detected (NotDetected); Opiate Screen,Urine Not Detected (NotDetected); Oxycodone Screen, Urine Not Detected (NotDetected); Tricyclic Antidepressant,Urine Not Detected (NotDetected)
[2024-07-06 13:45] VITALS: BP 132/77; PULSE 72
== END 2024-07-06 13:44 | disposition home or self-care (01) ==
LOC: EC 10:26
DX: F31.81 Bipolar II disorder (principal); Z11.52 Encounter for screening for COVID-19
CPT/HCPCS: 80306; 82075; 87635; 99285